=== PATIENT | male | born 1980 | race Caucasian/White ===

== ENCOUNTER 2019-05-25 20:11 | Observation (INO) | payer BC ==
[~2019-05-25] VITALS: Ht 182.9 cm; Wt 59.5 kg
[~2019-05-25 20:11] MED LIST: Anusol-HC 2.5%30 GM PR; CODACE30 PO; Flagyl500 MG PO; Lomotil Tablet1 EACH PO; OXYACE5T PO; OXYACE7.5T PO; PENVK500 PO; RXOXYACE PO; SILSUL1TC TOP
[2019-05-25 20:41] LABS: Hematocrit 28.8 % (37.0-53.0); Hemoglobin 8.4 g/dL (13.5-17.5); Mean Corpuscular HGB 24.9 pg (26.0-34.0); Mean Corpuscular HGB Conc 29.2 g/dL (31.5-36.5); Mean Corpuscular Volume 85 fL (80-100); Mean Platelet Volume 7.7 fL (9.1-12.4); NRBC ABSOLUTE 0.02 K/mm3 (0.00-0.02); NRBC Auto 0.3 /100 WBC (0.0-0.2); Platelet Count 799 K/mm3 (150-400); RDW Coefficient Variation 16.6 % (11.7-14.2); Red Blood Cell Count 3.38 M/mm3 (4.30-5.90); White Blood Cell Count 7.39 K/mm3 (4.00-11.30)
[2019-05-25 21:01] LABS: Alanine Aminotransfer (ALT/SGP 28 U/L (12-78); Albumin, Blood 1.5 g/dL (3.4-5.0); Albumin/Globulin Ratio 0.3 (0.8-1.8); Alk Phos 146 U/L (50-136); Anion Gap 7 mmol/L (6-16); Aspartate Aminotrans (AST/SGOT 13 U/L (12-37); Bilirubin, Total 0.2 mg/dL (0.1-1.0); Blood Urea Nitrogen 11 mg/dL (8-24); Bun/Creatinine Ratio 13.4 (12.0-20.0); CO2, Blood 24 mmol/L (21-32); Calcium, Blood 7.8 mg/dL (8.5-10.1); Chloride, Blood 99 mmol/L (98-108); Creatinine, Blood 0.82 mg/dL (0.60-1.20); Globulin, Blood 5.5 g/dL (2.2-4.0); Glomerular Filtration Rate >60 (60-); Glucose, Blood 81 mg/dL (70-99); Potassium, Blood 4.3 mmol/L (3.5-5.5); Sodium, Blood 130 mmol/L (136-145)
[2019-05-25 21:16] LABS: BAND PERCENT MAN 13 % (0-8); BASOPHILS PERCENT MAN 0 % (0-2); EOSINOPHILS PERCENT MAN 0 % (0-6); LYMPHOCYTES ABSOLUTE MAN 1.25 K/mm3 (0.84-5.20); LYMPHOCYTES PERCENT MAN 17 % (21-46); MONOCYTES ABSOLUTE MAN 0.73 K/mm3 (0.16-1.47); MONOCYTES PERCENT MAN 10 % (4-13); NEUTROPHILS ABSOLUTE MAN 5.39 K/mm3 (1.96-9.15); SEG NEUTROPHILS PERCENT MAN 60 % (41-73); TOTAL CELLS COUNTED 100
[2019-05-25 21:26] LABS: International Normalized Ratio 1.14; Prothrombin Time Results 11.9 Sec (9.7-11.5)
[2019-05-25] MEDS ORDERED: AMERICAINE28 GM PR (22:07)
[2019-05-26 00:26] LABS: Percent Saturation 13.3 % (20.0-50.0)
--- NOTE | 2019-05-26 00:28 | NUR ---
ADMISSION: PATIENT IS RECIEVED FROM ER VIA STRETCHER ABLE TO SLIDE TO BED FROM STRETCHER. NO COMPLAINTS OF PAIN OR NAUSEA, VS ARE STABLE. PATIENT IS ORIENTED TO ROOM AND CALL [facility]. INSTRUCTED TO GET UP SLOWLY.
[2019-05-26 00:31] LABS: Hemoglobin 7.1 g/dL (13.5-17.5)
--- NOTE | 2019-05-26 05:05 | NUR ---
TRANSFUSION: TRABSFUSION IS STARTED. EDUCATION GIVEN ON S.S OF REACTION. PATIENT VERBALIZES UNDERSTANDING. VS ARE STABLE RATE IS INCREASED TO 150 M L/HR.
--- NOTE | 2019-05-26 06:45 | NUR ---
SHIFT SUMMARY: PATIENT IS IN CONTACT ISOLATION UNTIL GI PANEL IS OBTAINED. TRANSFUSION IS ALMOST COPMPLETE, NO S/S OF REACTION. NO COMPLAINTS OF PAIN OR NAUSEA. PATIENT IS USING BSC AND URINAL DURING TRANSFUSION. NO BM THIS SHIFT.
[2019-05-26 08:14] LABS: Hematocrit 30.6 % (37.0-53.0); Hemoglobin 9.4 g/dL (13.5-17.5); Mean Corpuscular HGB 25.7 pg (26.0-34.0); Mean Corpuscular HGB Conc 30.7 g/dL (31.5-36.5); Mean Corpuscular Volume 84 fL (80-100); Mean Platelet Volume 7.7 fL (9.1-12.4); Platelet Count 613 K/mm3 (150-400); RDW Coefficient Variation 15.6 % (11.7-14.2); RDW Standard Deviation 47.1 fL (35.1-46.3); Red Blood Cell Count 3.66 M/mm3 (4.30-5.90)
[2019-05-26 08:36] LABS: Alanine Aminotransfer (ALT/SGP 23 U/L (12-78); Albumin, Blood 1.3 g/dL (3.4-5.0); Albumin/Globulin Ratio 0.3 (0.8-1.8); Alk Phos 131 U/L (50-136); Anion Gap 6 mmol/L (6-16); Aspartate Aminotrans (AST/SGOT 10 U/L (12-37); Bilirubin, Total 1.1 mg/dL (0.1-1.0); Blood Urea Nitrogen 7 mg/dL (8-24); Bun/Creatinine Ratio 9.5 (12.0-20.0); CO2, Blood 27 mmol/L (21-32); Calcium, Blood 7.9 mg/dL (8.5-10.1); Chloride, Blood 101 mmol/L (98-108); Creatinine, Blood 0.74 mg/dL (0.60-1.20); Glomerular Filtration Rate >60 (60-); Glucose, Blood 84 mg/dL (70-99); Potassium, Blood 4.2 mmol/L (3.5-5.5); Sodium, Blood 134 mmol/L (136-145); Total Protein, Blood 6.3 g/dL (6.4-8.2)
[2019-05-26 08:41] LABS: BAND PERCENT MAN 20 % (0-8); BASOPHILS PERCENT MAN 0 % (0-2); EOSINOPHILS PERCENT MAN 0 % (0-6); LYMPHOCYTES ABSOLUTE MAN 0.81 K/mm3 (0.84-5.20); LYMPHOCYTES PERCENT MAN 8 % (21-46); METAMYELOCYTE PERCENT MAN 2 % (0-0); MONOCYTES PERCENT MAN 3 % (4-13); NEUTROPHILS ABSOLUTE MAN 8.87 K/mm3 (1.96-9.15); SEG NEUTROPHILS PERCENT MAN 67 % (41-73); TOTAL CELLS COUNTED 100
[2019-05-26 10:24] LABS: Campylobacter Sp Not Detected (NOT DETECT)
[2019-05-26 10:25] LABS: Adenovirus F 40/41 Not Detected (NOT DETECT); Astrovirus Not Detected (NOT DETECT); Cryptosporidium Not Detected (NOT DETECT); Cyclospora Cayetanensis Not Detected (NOT DETECT); E. Coli O157 Not Detected (NOT DETECT); Entamoeba Histolytica Not Detected (NOT DETECT); Enteroaggregative E. coli-EAEC Not Detected (NOT DETECT); Enteropathogenic E. coli-EPEC Not Detected (NOT DETECT); Enterotoxigenic E. coli-ETEC Not Detected (NOT DETECT); Giardia Lamblia Not Detected (NOT DETECT); Norovirus GI/GII Not Detected (NOT DETECT); Plesiomonas Shigelloides Not Detected (NOT DETECT); Rotavirus A Not Detected (NOT DETECT); Salmonella Sp Not Detected (NOT DETECT); Sapovirus Not Detected (NOT DETECT); Shiga Toxin-prod E. coli-STEC Not Detected (NOT DETECT); Shigella/Enteroin E. coli-EIEC Not Detected (NOT DETECT); Vibrio Cholerae Not Detected (NOT DETECT); Vibrio Sp Not Detected (NOT DETECT); Yersinia Enterocolitica Not Detected (NOT DETECT)
--- NOTE | 2019-05-26 17:25 | NUR ---
SUMM- PT A/O VERBAL AND VERY PLEASANT. COMPLETED 2ND UNIT OF BRBC'S THIS AM AT 0810. CONT IVF NS AT 100. PT BEGAN HAVING LOOSE STOOLE THIS AM AT 0800, [place] WITH [employer]. SOON AFTER LOOSE STOOL ALREADY STARTED, PT INSTRUCTED TO DRINK BOWEL PREP GOLYTELY FOR SCOPE PLANNED /[address] BURDEN. PT TO BE NPO AFTER MIDNIGHT. WILL COMPLETE 2ND HALF OF PREP IN AM TO BE COMPLETED BY 0700. PT DENIES PAIN OR NAUSEA AND TOLERATING ALL OF HIS CLEAR DIET. VOIDING MED TO LIGHT YELLOW AND FEELS BETTER AFTER HYDRATION AND BLOOD HE THINKS. GI PANAL SENT THIS AM AND ALL IS NEGATIVE. TAKEN OUT OF ISOLATION. VSS WITH LOWGRADE FEVER.
--- NOTE | 2019-05-27 05:14 | NUR ---
SHIFT SUMMARY: PATIENT IS A&OX4, VS ARE STABLE. FINISHED HALF OF THE GO-LYTE BEFOR 2300. STOOL WAS STILL BROWN BUT MOSTLY LIQUID, PATIENT IS TOLERATING PREP WELL. 0500 PATIENT SARTED THE SECOND HALF OF THE PREP. BSC IS AT BEDSIDE. HEMOHRROIDS ARE PAINFULL AND INFLAMED. SRUTHI FRANCO WAS NOTIFIED AND ORDERS FOR PRN HEMOHRROID CREAM AND TUCKS PADS WERE OBTAINED. JONATAN BOTTLE IS GIVEN AND PATIENT IS EDUCATED ON HOW TO USE FOR CLEANSING HEMMOHRROIDS AFTER BM.
--- NOTE | 2019-05-27 08:38 | NUR ---
History, Chart, Medications and Allergies reviewed before start of procedure. Patient states colon prep results clear. Lungs clear T/O to Auscultation. Patient confirms NPO status and agrees with scheduled surgery. Pre-Op teaching done. Pt verbalizes understanding.
--- NOTE | 2019-05-27 09:03 | NUR ---
05/27/19 0903 Anitha Pate PATIENT DETERMINED TO BE ASA APPROPRIATE FOR PROPOFOL SEDATION PRIOR TO START OF PROCEDURE BY DR. BURDEN. 3-LEAD EKG REVIEWED WITH PHYSICIAN PRIOR TO START OF PROCEDURE. PATIENT CONFIRMS NPO STATUS AND AGREES WITH SCHEDULED PROCEDURE. History, Chart, Medications and Allergies reviewed before start of procedure. MONITOR INTACT WITH CONTINUOUS PULSE OXIMETRY AND INTERMITTENT BP. O2 VIA N/C INTACT THROUGHOUT SEDATION/PROCEDURE, 3L.
[2019-05-27] MEDS ORDERED: PRED20 PO (12:17)
[2019-05-27] MEDS ORDERED: FERSU300 PO (12:18)
[2019-05-27] MEDS ORDERED: ONDA4ODT MM (12:19)
[2019-05-27] MEDS ORDERED: Docusate Sodiu100 M1 PO (12:20)
[2019-05-27] MEDS ORDERED: POLYETHYLENE G500 G1 PO (12:21)
--- NOTE | 2019-05-27 14:01 | NUR ---
1319 PT DISCHARGED HOME VIA PERSONAL VEHICLE ACCOMPANIED AND DRIVEN BY COUSIN. PT REFUSED W/C ESCORT TO ENTRANCE. IV REMOVED. D/C PAPERWORK REVIEWED WITH PT AND COPY PROVIDED. FOLLOW UP APPOINTMENT MADE WITH PCP, [facility] OFFICE REPORTED THAT THEY WILL CALL PT WITH APPOINTMENT DATE/TIME. NEW RX FAXED TO [facility] PER PT REQUEST. NO NEW CHANGES OR CONCERNS.
[2019-05-28 06:08] LABS: HBSAG SCREEN Negative (Negative); HEP B CORE AB, TOT Negative (Negative)
[2019-05-31 02:06] LABS: QUANTIFERON MITOGEN VALUE 3.84 IU/mL (.); QUANTIFERON NIL VALUE 0.06 IU/mL (.); QUANTIFERON TB1 AG VALUE 0.06 IU/mL (.); QUANTIFERON TB2 AG VALUE 0.06 IU/mL (.); QUANTIFERON-TB GOLD PLUS Negative (Negative)
[2019-06-08] MEDS ORDERED: ACIDOPHILUS1 EAC3 PO (13:34)
[2019-06-08] MEDS ORDERED: HYDCOR2.5C PR (13:35)
[2019-06-08] MEDS ORDERED: AMERICAINE57 GM (13:35)
[2019-06-08] MEDS ORDERED: Anti-Diarrheal2 MG PO (13:35)
== END 2019-05-27 13:19 | disposition home or self-care (01) ==
LOC: ER 20:11 → ICUW 20:12 → ER 20:12 → MEDS 22:44 → ENPENDDIS 05-27 10:00 → MEDS 05-27 13:19
PROVIDERS: Internal Medicine Gastroenterology; Nurse Practitioner Acute Care; Physician Assistant; ADMIT Family Medicine
PROC: 0DBP8ZZ Excision of Rectum, Via Natural or Artificial Opening Endoscopic (ICD-10-PCS; principal; 2019-05-27 09:00)
PROC: 0DBG8ZZ Excision of Left Large Intestine, Via Natural or Artificial Opening Endoscopic (ICD-10-PCS; principal; 2019-05-27 09:00)
DX: K52.9 Noninfective gastroenteritis and colitis, unspecified (principal); D50.0 Iron deficiency anemia secondary to blood loss (chronic); K62.2 Anal prolapse; E88.09 Other disorders of plasma-protein metabolism, not elsewhere classified; K62.6 Ulcer of anus and rectum; F17.220 Nicotine dependence, chewing tobacco, uncomplicated; E46 Unspecified protein-calorie malnutrition; Z79.899 Other long term (current) drug therapy
CPT/HCPCS: 0097U; 36415; 36430; 80053; 82607; 82728; 82746; 83540; 83550; 85014; 85018; 85025; 85610; 86141; 86317; 86480; 86704; 86735; 86762; 86765; 86787; 86850; 86900; 86901; 86923; 87340; 88305; 93005; 93010; 96360; 96361; 96365; 99285-25; G0378; J2704; J2916; J7030; J7120; J7512; P9016

== ENCOUNTER → 2019-06-07 | Outpatient (CLI) | payer BC ==
[~2019-06-07] MED LIST changes: +ACIDOPHILUS1 EAC3 PO; +AMERICAINE28 GM PR; +AMERICAINE57 GM; +Anti-Diarrheal2 MG PO; +Docusate Sodiu100 M1 PO; +FERSU300 PO; +HYDCOR2.5C PR; +ONDA4ODT MM; +POLYETHYLENE G500 G1 PO; +PRED20 PO
[2019-06-07 15:18] LABS: Campylobacter Sp Not Detected (NOT DETECT); Enteroaggregative E. coli-EAEC Not Detected (NOT DETECT); Plesiomonas Shigelloides Not Detected (NOT DETECT); Salmonella Sp Not Detected (NOT DETECT); Vibrio Cholerae Not Detected (NOT DETECT); Vibrio Sp Not Detected (NOT DETECT); Yersinia Enterocolitica Not Detected (NOT DETECT)
[2019-06-07 15:19] LABS: Adenovirus F 40/41 Not Detected (NOT DETECT); Astrovirus Not Detected (NOT DETECT); Cryptosporidium Not Detected (NOT DETECT); Cyclospora Cayetanensis Not Detected (NOT DETECT); E. Coli O157 Not Detected (NOT DETECT); Entamoeba Histolytica Not Detected (NOT DETECT); Enteropathogenic E. coli-EPEC Not Detected (NOT DETECT); Enterotoxigenic E. coli-ETEC Not Detected (NOT DETECT); Giardia Lamblia Not Detected (NOT DETECT); Norovirus GI/GII Not Detected (NOT DETECT); Rotavirus A Not Detected (NOT DETECT); Sapovirus Not Detected (NOT DETECT); Shiga Toxin-prod E. coli-STEC Not Detected (NOT DETECT); Shigella/Enteroin E. coli-EIEC Not Detected (NOT DETECT)
== END | disposition home or self-care (01) ==
LOC: LAB SHORT 13:15 → OLS 13:15 → EDSTATUS 05-21 17:00 → LAB FUT 05-21 17:00
PROVIDERS: Student in an Organized Health Care Education/Training Program
DX: R19.7 Diarrhea, unspecified (principal)
CPT/HCPCS: 0097U; 83993

== ENCOUNTER 2019-11-05 19:11 | Emergency (ER) | payer OTHER ==
[~2019-11-05] VITALS: Ht 167.6 cm; Wt 63.5 kg
[2019-11-05] MEDS ORDERED: HYDR1TAB94 PO (21:49)
== END 2019-11-05 22:13 | disposition home or self-care (01) ==
LOC: ER 19:11
DX: S42.021A Displaced fracture of shaft of right clavicle, initial encounter for closed fracture (principal); S63.502A Unspecified sprain of left wrist, initial encounter; S70.01XA Contusion of right hip, initial encounter; F17.200 Nicotine dependence, unspecified, uncomplicated; V89.2XXA Person injured in unspecified motor-vehicle accident, traffic, initial encounter
CPT/HCPCS: 73000; 73110; 73502; 99284-25; A9270-GY; L3917

== ENCOUNTER 2021-12-05 20:03 | Emergency (ER) | payer OTHER ==
[~2021-12-05] VITALS: Ht 182.9 cm; Wt 68.0 kg
[~2021-12-05 20:03] MED LIST changes: +HYDR1TAB94 PO
== END 2021-12-05 21:57 | disposition home or self-care (01) ==
LOC: ER 20:03
DX: L23.7 Allergic contact dermatitis due to plants, except food (principal); F17.200 Nicotine dependence, unspecified, uncomplicated
CPT/HCPCS: 96372; 99282-25; J3301

== ENCOUNTER 2021-12-09 16:40 | Emergency (ER) | payer OTHER ==
[~2021-12-09] VITALS: Ht 180.3 cm; Wt 70.3 kg
== END 2021-12-09 19:49 | disposition home or self-care (01) ==
LOC: ER 16:40
DX: L25.9 Unspecified contact dermatitis, unspecified cause (principal); F17.210 Nicotine dependence, cigarettes, uncomplicated
CPT/HCPCS: 99283

== ENCOUNTER → 2021-12-14 | Outpatient (CLI) | payer OTHER | END | disposition home or self-care (01) | LOC: LAB 16:19 → LAB SHORT 16:19 | DX: L23.7 Allergic contact dermatitis due to plants, except food (principal); L03.115 Cellulitis of right lower limb | CPT/HCPCS: 87070; 87075; 87077; 87147; 87186; 87205 ==

== ENCOUNTER 2024-03-05 20:31 | Emergency (ER) | payer OTHER ==
[~2024-03-05] VITALS: Ht 180.3 cm; Wt 68.0 kg
[~2024-03-05 20:31] MED LIST changes: +CRUTCH4 XX
[2024-03-05 20:38] VITALS: BP 155/95
[2024-03-05] MEDS ORDERED: CEPH500 PO (21:03)
== END 2024-03-05 21:00 | disposition home or self-care (01) ==
LOC: ER 20:31
DX: L08.9 Local infection of the skin and subcutaneous tissue, unspecified (principal); F17.210 Nicotine dependence, cigarettes, uncomplicated
CPT/HCPCS: 99283